=== PATIENT | male | born 1970 | race Caucasian/White ===

== ENCOUNTER → 2016-08-31 | Outpatient (CLI) | payer OTHER | LOC: KOH-I 11:47 | DX: M54.11 Radiculopathy, occipito-atlanto-axial region (principal); M25.552 Pain in left hip | CPT/HCPCS: 72110; 73502 ==

== ENCOUNTER 2020-05-26 09:45 | Emergency (ER) | payer BC, OTHER ==
[~2020-05-26 09:45] MED LIST: ASPIRIN EC81 MG PO; BENTYL 20MG TAB20 MG PO; FLEXERIL 10 MG10 MG PO; IMDUR ER TAB 3030 MG PO; METOPROLOL SUCC25 MG PO; MIRALAX17 GM PO; MOBIC15 MG PO; NAPROSYN500 MG PO; NITROGLYCERIN0.4 MG SL; PANTOPRAZOLE SO40 MG PO; PERCOCET 5/325 T1 EA PO; PRAVASTATIN SOD20 MG PO; PREDNISONE20 MG PO; PROTONIX40 MG PO; Voltaren Gel 1 % TOP; ZOFRAN4 MG PO
[2020-05-26] MEDS ORDERED: NAPROSYN500 MG PO (13:32)
[2020-05-26] MEDS ORDERED: KEFLEX CAP 500500 MG PO (13:32)
== END 2020-05-26 13:41 | disposition home or self-care (01) ==
LOC: ER1 09:45
DX: S67.193A Crushing injury of left middle finger, initial encounter (principal); S61.213A Laceration without foreign body of left middle finger without damage to nail, initial encounter; I10 Essential (primary) hypertension; Z79.899 Other long term (current) drug therapy; W23.0XXA Caught, crushed, jammed, or pinched between moving objects, initial encounter; Y92.89 Other specified places as the place of occurrence of the external cause; Y99.0 Civilian activity done for income or pay
CPT/HCPCS: 12001; 73140; 99283

== ENCOUNTER 2020-11-01 12:46 | Emergency (ER) | payer BC, OTHER ==
[~2020-11-01 12:46] MED LIST changes: +KEFLEX CAP 500500 MG PO
[2020-11-01 14:26] LABS: HEMOGLOBIN 13.5 gm/dl (14.0-17.5); RED BLOOD COUNT 4.57 M/UL (4.20-5.50); WHITE BLOOD COUNT 6.7 K/UL (4.5-11.0)
[2020-11-01 14:45] LABS: BUN/CREATININE RATIO 10 (0-10)
[2020-11-01] MEDS ORDERED: PYRIDIUM200 MG PO (16:23)
[2020-11-01] MEDS ORDERED: TORADOL 10 MG T10 MG PO (16:23)
[2020-11-01] MEDS ORDERED: CEFUROXIME500 MG PO (16:23)
[2020-11-01] MEDS ORDERED: ONDANSETRON ODT4 MG SL (16:23)
== END 2020-11-01 16:31 | disposition home or self-care (01) ==
LOC: ER1 12:46
PROVIDERS: Physician Assistant
DX: N39.0 Urinary tract infection, site not specified (principal); R31.9 Hematuria, unspecified; K76.0 Fatty (change of) liver, not elsewhere classified; I10 Essential (primary) hypertension; Z90.49 Acquired absence of other specified parts of digestive tract; Z90.89 Acquired absence of other organs
CPT/HCPCS: 80053; 81001; 83690; 85025; 87086; 96374; 96375; 99284; J0696; J1885; J2270; J2405

== ENCOUNTER 2020-11-07 10:13 | Emergency (ER) | payer BC, OTHER ==
[~2020-11-07 10:13] MED LIST changes: +CEFUROXIME500 MG PO; +ONDANSETRON ODT4 MG SL; +PYRIDIUM200 MG PO; +TORADOL 10 MG T10 MG PO
[2020-11-07 11:27] LABS: HEMOGLOBIN 13.4 gm/dl (14.0-17.5); RED BLOOD COUNT 4.55 M/UL (4.20-5.50); WHITE BLOOD COUNT 8.2 K/UL (4.5-11.0)
[2020-11-07 11:39] LABS: BUN/CREATININE RATIO 10 (0-10)
[2020-11-07] MEDS ORDERED: K-DUR TAB 20 M20 MEQ PO (16:40)
[2020-11-07] MEDS ORDERED: LASIX40 MG PO (16:40)
== END 2020-11-07 17:25 | disposition home or self-care (01) ==
LOC: ER1 10:13
PROVIDERS: Physician Assistant
DX: R07.89 Other chest pain (principal); R79.1 Abnormal coagulation profile; M79.89 Other specified soft tissue disorders; I10 Essential (primary) hypertension; F17.210 Nicotine dependence, cigarettes, uncomplicated; Z90.89 Acquired absence of other organs; Z90.49 Acquired absence of other specified parts of digestive tract
CPT/HCPCS: 71045; 80053; 82550; 82553; 83874; 83880; 84484; 85025; 85379; 93005; 93971; 96374; 99285; J1885; Q9967

== ENCOUNTER 2020-11-13 22:58 | Emergency (ER) | payer BC, OTHER ==
[~2020-11-13 22:58] MED LIST changes: +K-DUR TAB 20 M20 MEQ PO; +LASIX40 MG PO
[2020-11-14 00:11] LABS: HEMOGLOBIN 13.3 gm/dl (14.0-17.5); RED BLOOD COUNT 4.48 M/UL (4.20-5.50); WHITE BLOOD COUNT 7.5 K/UL (4.5-11.0)
[2020-11-14 00:24] LABS: BUN/CREATININE RATIO 17 (0-10)
[2020-11-14] MEDS ORDERED: K-DUR TAB 20 M20 MEQ PO (02:42)
[2020-11-14] MEDS ORDERED: BUMETANIDE1 MG PO (02:42)
== END 2020-11-14 02:50 | disposition home or self-care (01) ==
LOC: ER1 22:58
PROVIDERS: Emergency Medicine
DX: R10.9 Unspecified abdominal pain (principal); R60.0 Localized edema; E87.6 Hypokalemia; I10 Essential (primary) hypertension; F17.200 Nicotine dependence, unspecified, uncomplicated; Z90.49 Acquired absence of other specified parts of digestive tract; Z90.89 Acquired absence of other organs
CPT/HCPCS: 71045; 80053; 81001; 82550; 82553; 83690; 83735; 83874; 83880; 84439; 84443; 84484; 85025; 87086; 96374; 99284; Q9967

== ENCOUNTER → 2021-11-13 | Outpatient (CLI) | payer BC ==
[~2021-11-13] MED LIST changes: +BUMETANIDE1 MG PO; +CEFDINIR300 MG PO; +DOCUSATE SODIU250 MG PO; +LISINOPRIL20 MG PO; +MAGNESIUM250 M1 PO; +POTASSIUM CHLO10 ME1 PO
== END ==
LOC: KOH-I 14:42
DX: K59.00 Constipation, unspecified (principal); R33.9 Retention of urine, unspecified; R05.9 Cough, unspecified; R14.3 Flatulence
CPT/HCPCS: 71046; 74018

== ENCOUNTER 2021-11-15 00:44 | Inpatient (IN) | payer BC ==
[~2021-11-15] VITALS: Ht 172.7 cm; Wt 118.4 kg
[~2021-11-15 00:44] MED LIST changes: -CEFDINIR300 MG PO; -DOCUSATE SODIU250 MG PO; -LISINOPRIL20 MG PO; -MAGNESIUM250 M1 PO; -POTASSIUM CHLO10 ME1 PO
[2021-11-15 01:34] LABS: RED BLOOD COUNT 4.73 M/UL (4.20-5.50); WHITE BLOOD COUNT 14.2 K/UL (4.5-11.0)
[2021-11-15 02:09] LABS: BUN/CREATININE RATIO 14 (0-10)
[2021-11-15] MEDS ORDERED: ASPIRIN EC81 MG PO (12:18)
[2021-11-15] MEDS ORDERED: LISINOPRIL20 MG PO (12:19)
[2021-11-15] MEDS ORDERED: NITROGLYCERIN0.4 MG SL (12:19)
[2021-11-15] MEDS ORDERED: DOCUSATE SODIU250 MG PO (12:20)
[2021-11-15] MEDS ORDERED: CEFDINIR300 MG PO (12:21)
[2021-11-15] MEDS ORDERED: MAGNESIUM250 M1 PO (12:22)
[2021-11-15] MEDS ORDERED: POTASSIUM CHLO10 ME1 PO (12:23)
[2021-11-16 06:14] LABS: HEMOGLOBIN 12.4 gm/dl (14.0-17.5)
[2021-11-16 06:17] LABS: RED BLOOD COUNT 4.19 M/UL (4.20-5.50); WHITE BLOOD COUNT 6.5 K/UL (4.5-11.0)
[2021-11-16 06:55] LABS: BUN/CREATININE RATIO 12 (0-10)
== END 2021-11-17 12:35 | disposition home or self-care (01) | DRG 440 ==
LOC: ER1 00:44 → CDU 04:46 → MED SURG 4 08:51
PROVIDERS: Family Medicine; ADMIT Internal Medicine
DX: K85.90 Acute pancreatitis without necrosis or infection, unspecified (principal); Z20.822 Contact with and (suspected) exposure to COVID-19; F17.210 Nicotine dependence, cigarettes, uncomplicated; I10 Essential (primary) hypertension; E87.6 Hypokalemia; E66.9 Obesity, unspecified; Z90.49 Acquired absence of other specified parts of digestive tract; Z79.82 Long term (current) use of aspirin; Z98.890 Other specified postprocedural states; Z82.49 Family history of ischemic heart disease and other diseases of the circulatory system; Z68.39 Body mass index [BMI] 39.0-39.9, adult
CPT/HCPCS: 36415; 71046; 80053; 81001; 82550; 82553; 83690; 83735; 84478; 84484; 85025; 93005; 96374; 96375; 99285; J1170; J1650; J2270; J2405; J3480; Q9967

== ENCOUNTER → 2021-12-25 | Outpatient (CLI) | payer BC ==
[~2021-12-25] MED LIST changes: +CEFDINIR300 MG PO; +DOCUSATE SODIU250 MG PO; +LISINOPRIL20 MG PO; +MAGNESIUM250 M1 PO; +POTASSIUM CHLO10 ME1 PO
[2021-12-25 17:40] LABS: HEMOGLOBIN 13.9 gm/dl (14.0-17.5); RED BLOOD COUNT 4.71 M/UL (4.20-5.50); WHITE BLOOD COUNT 6.6 K/UL (4.5-11.0)
[2021-12-25 18:02] LABS: BUN/CREATININE RATIO 11 (0-10)
== END ==
LOC: LAB 16:58
PROVIDERS: Surgery
DX: R10.13 Epigastric pain (principal)
CPT/HCPCS: 36415; 71046; 80048; 82150; 83690; 85025; 93005